=== PATIENT | male | born 1955 | race Caucasian/White ===

== ENCOUNTER 2017-09-27 21:46 | Emergency (ER) | payer BC ==
--- NOTE | 2017-09-27 21:47 | ER Report ---
History and Physical Time Seen By MD: 21:47 HPI/ROS CHIEF COMPLAINT: Right lower back pain HISTORY OF PRESENT ILLNESS: Patient is a 62-year-old male here with complaints of right lower back pain after a fall in the pool area. Patient reportedly was holding onto a pool ladder when he lost balance and fell on his gluteus. Patient denies bowel or bladder incontinence, weakness or numbness down the leg. He does have pain that is localized to the sciatic notch but denies midline back pain or deformities. Patient took approximately 800 mg of ibuprofen prior to arrival without relief of symptoms. Patient denies further injury, neck pain, chest pain, shortness breath, dizziness. REVIEW OF SYSTEMS: Constitutional: No fever, no chills. Eyes: No discharge. ENT: No sore throat. Cardiovascular: No chest pain, no palpitations. Respiratory: No cough, no shortness of breath. Gastrointestinal: No abdominal pain, no vomiting. Genitourinary: No hematuria. Musculoskeletal: + lower back pain. Skin: No rashes. Neurological: No headache. Allergies: Coded Allergies: No Known Drug Allergies (Unverified , 09/27/17) Home Meds Reported Medications Minocycline Hcl (MINOCYCLINE HCL) 100 Mg Tablet, 100 MG PO QDAY, CAPSULE 09/27/17 Aspirin (ASPIRIN EC) 81 Mg Tablet.dr, 81 MG PO QDAY, TAB 09/27/17 Levothyroxine Sodium (LEVOTHYROXINE SODIUM) 100 Mcg Tablet, 100 MCG PO QDAY, TAB 09/27/17 Atorvastatin Calcium (LIPITOR) 20 Mg Tablet, 1 TAB PO QDAY, TAB 09/27/17 Constitutional Vital Sign - Last 24 Hours 09/27/17 21:46 Temp 98.5 Pulse 65 Resp 20 B/P (MAP) 163/91 Pulse Ox 94 O2 Delivery Room Air Physical Exam General Appearance: The patient is alert, has no immediate need for airway protection and no signs of toxicity. No acute distress Eyes: Pupils equal and round no pallor or injection. ENT, Mouth: Mucous membranes are moist. Respiratory: There are no retractions, lungs are clear to auscultation. Cardiovascular: Regular rate and rhythm. Gastrointestinal: Abdomen is soft and non tender, no masses, bowel sounds normal. Neurological: No focal neurological deficits, good strength in extremities, sensation intact. Skin: Warm and dry, no rashes. Musculoskeletal: Neck is supple non tender, + right lower back pain Extremities are nontender, nonswollen and have full range of motion. DIFFERENTIAL DIAGNOSIS: After history and physical exam differential diagnosis was considered for contusion, sprain, muscle spasm, fracture. Medical Decision Making EKG/Imaging Imaging LUMBAR SPINE: Indication: Injury. Technique: Frontal and lateral views were obtained. Comparison: None. Findings: There is no evidence of fracture, subluxation, or compression deformity. There is mild degenerative disc space narrowing at L5-S1. There is minimal osteophyte formation at L3-L4. There is uniform mineralization of the skeletal structures. The paraspinal soft tissues appear unremarkable. IMPRESSION: No acute deformity. HIP: Indication: Injury. Technique: Two views were obtained. Comparison: None. Findings: There is no evidence of fracture, dislocation, or other acute deformity. No joint space narrowing, erosion, or osteophyte formation is noted. There is uniform mineralization of the skeletal structures. There is no evidence of soft tissue deformity. There are surgical clips in the scrotum, consistent with prior vasectomy. IMPRESSION: Negative right hip. ED Course/Re-evaluation ED Course Patient is a 62-year-old male here with complaints of right lower back pain after a fall at a pool today. Patient had taken ibuprofen 800 mg prior to arrival without relief of symptoms. Patient denies bowel or bladder incontinence , fevers, chills, other injury, weakness or numbness down the leg. Pain is maximal at sciatic notch. X-ray imaging of the L-spine and the hip was completed to rule out fracture and showed no acute findings.. Patient was given Valium and patient deferred Dilaudid for pain control and muscle spasm. Patient was given scripts for Valium, Percocet and was advised to take naproxen. Patient voiced understanding. Decision to Disposition Date: Sep 27, 2017 Decision to Disposition Time: 23:21 Depart Departure Latest Vital Signs Vital Signs Date Time Temp Pulse Resp B/P (MAP) Pulse Ox O2 Delivery O2 Flow Rate FiO2 09/27/17 21:46 98.5 65 20 163/91 94 Room Air Impression: Primary Impression: Musculoskeletal back pain Condition: Improved Disposition: HOME OR SELF-CARE New Scripts Naproxen Sodium (ALEVE) 220 Mg Capsule 440 MG PO TID for 7 Days, #30 CAPSULE Prov: FRANKLYN NAIK DO 09/27/17 Oxycodone Hcl/Acetaminophen (PERCOCET 5-325 MG TABLET) 1 Each Tablet 1 EACH PO Q4H Y for PAIN, #12 TAB 0 Refills Prov: FRANKLYN NAIK DO 09/27/17 Diazepam (VALIUM) 5 Mg Tablet 5 MG PO 2-3XD for Muscle Relaxant for 5 Days, #15 TAB Prov: FRANKLYN NAIK DO 09/27/17 Patient Instructions: Musculoskeletal Pain (ED) Additional Instructions: You may take 1 tablet of Valium every 6-8 hours as needed for muscle spasm. You may take 1 tablet of Percocet every 6 hours as needed for pain. Please take naproxen every 12 hours or twice a day for main pain relief. Please return promptly if you develop fevers, incontinence, weakness or numbness down the legs. FRANKLYN NAIK DO Sep 27, 2017 21:47
[2017-09-27] MEDS ORDERED: DIAZEPAM 5 MG TAB PO ONE (22:00)
[2017-09-27] MEDS ORDERED: HYDROmorphone* 1 MG/ML 1 MG/ML ML IM ONE (22:00)
[2017-09-27] MEDS ORDERED: ASPI81TA86 PO (22:18)
[2017-09-27] MEDS ORDERED: LEVO-3 PO (22:18)
[2017-09-27] MEDS ORDERED: MINO100T8 PO (22:18)
[2017-09-27] MEDS ORDERED: ATOR20TA22 PO (22:18)
--- NOTE | 2017-09-27 22:53 | RADIOLOGY IMAGING REPORT ---
FACILITY: [facility] - [place] PATIENT NAME: Marquis Gil : 1955 MR: [id number] V: [id number] EXAM DATE: ORDERING PHYSICIAN: FRANKLYN NAIK TECHNOLOGIST: Location: [facility] - [place] Patient: Marquis Gil : 1955 Visit/Account:[id number] Date of Sevice: 09/27/2017 LUMBAR SPINE: Indication: Injury. Technique: Frontal and lateral views were obtained. Comparison: None. Findings: There is no evidence of fracture, subluxation, or compression deformity. There is mild dege nerative disc space narrowing at L5-S1. There is minimal osteophyte formation at L3-L4. There is unif orm mineralization of the skeletal structures. The paraspinal soft tissues appear unremarkable. IMPRESSION: No acute deformity. Report Dictated By: Maykel Gee MD at 09/27/2017 10:48 PM Report E-Signed By: Maykel Gee MD at 09/27/2017 10:49 PM WSN:[id number]
--- NOTE | 2017-09-27 22:55 | RADIOLOGY IMAGING REPORT ---
FACILITY: [facility] - [place] PATIENT NAME: Marquis Gil : 1955 MR: [id number] V: [id number] EXAM DATE: ORDERING PHYSICIAN: FRANKLYN NAIK TECHNOLOGIST: Location: [facility] - [place] Patient: Marquis Gil : 1955 Visit/Account:[id number] Date of Sevice: 09/27/2017 HIP: Indication: Injury. Technique: Two views were obtained. Comparison: None. Findings: There is no evidence of fracture, dislocation, or other acute deformity. No joint space ty rowing, erosion, or osteophyte formation is noted. There is uniform mineralization of the skeletal st ructures. There is no evidence of soft tissue deformity. There are surgical clips in the scrotum, con sistent with prior vasectomy. IMPRESSION: Negative right hip. Report Dictated By: Maykel Gee MD at 09/27/2017 10:50 PM Report E-Signed By: Maykel Gee MD at 09/27/2017 10:52 PM WSN:[id number]
[2017-09-27] MEDS ORDERED: OXYC-865 PO (23:23)
[2017-09-27] MEDS ORDERED: DIA5 PO (23:23)
[2017-09-27] MEDS ORDERED: NAPR220C12 PO (23:23)
[2017-09-27 23:28] VITALS: BP 143/95
== END 2017-09-27 23:33 | disposition home or self-care (01) ==
LOC: ER 22:02
DX: M54.5 Low back pain (principal); W18.30XA Fall on same level, unspecified, initial encounter
CPT/HCPCS: 72100; 99284